=== PATIENT | male | born 1970 | race Caucasian/White ===

== ENCOUNTER 2016-09-10 19:13 | Emergency (ER) | payer OTHER ==
[~2016-09-10] VITALS: Ht 193 cm; Wt 81.6 kg
[2016-09-10] MEDS ORDERED: OXYCODONE/APAP 5-325 MG TABLET PO ONE (19:30)
[2016-09-10 19:40] LABS: BASOPHILS # (AUTO) 0.1 K/uL (0.0-8.0); BASOPHILS % (AUTO) 0.9 % (0.0-2.0); EOSINOPHILS # (AUTO) 0.3 K/uL (0.0-0.7); EOSINOPHILS % (AUTO) 4.2 % (0.0-7.0); HEMOGLOBIN 15.6 G/DL (14.0-18.0); LYMPHOCYTES % (AUTO) 33.9 % (20.5-51.5); MEAN CORPUSCULAR HEMOGLOBIN 30.5 UUG (27.0-31.0); MEAN CORPUSCULAR HGB CONC 33 g/dL (32.0-37.0); MEAN CORPUSCULAR VOLUME 92.1 FL (82.0-92.0); MONOCYTES # (AUTO) 0.4 K/UL (0.1-1.30); MONOCYTES % (AUTO) 7.2 % (0.0-11.0); NEUTROPHILS # (AUTO) 3.2 K/UL (1.8-8.9); NEUTROPHILS % (AUTO) 53.8 % (38.5-71.5); PLATELET COUNT (AUTO) 231 K/UL (150-450); RED BLOOD CELL COUNT(AUTO) 5.11 MIL/UL (4.7-6.1)
[2016-09-10 19:41] LABS: CALCIUM 8.4 mg/dL (8.5-10.1); CREATININE 0.8 mg/dL (0.6-1.3); POTASSIUM 4.1 mmol/L (3.5-5.1)
[2016-09-10 19:46] LABS: ALBUMIN 3.6 g/dL (3.4-5.0); BILIRUBIN,DIRECT 0.1 mg/dL (0.0-0.2); BILIRUBIN,TOTAL 0.3 mg/dL (0.2-1.0); TOTAL PROTEIN, SERUM 6.9 g/dL (6.4-8.2)
[2016-09-10] MEDS ORDERED: OXYCODONE/APAP 5-325 MG TABLET ONE (19:46)
[2016-09-10 19:49] LABS: *AMPHETAMINE, URINE NEGATIVE (NEGATIVE); *BARBITURATE, URINE NEGATIVE (NEGATIVE); *CANNABINOID, URINE NEGATIVE (NEGATIVE); *COCCAINE, URINE NEGATIVE (NEGATIVE); *OPIATE, URINE NEGATIVE (NEGATIVE); *PHENCYCLIDINE SCREEN,URINE NEGATIVE (NEGATIVE)
--- NOTE | 2016-09-10 21:06 | NUR ---
Patient given written and verbal discharge instructions. Patient verbalizes understanding of instructions. Patient is ambulatory with steady gait. Refuses offer of correction placement. Patient given list of available shelters in surrounding area.
== END 2016-09-10 21:14 | disposition home or self-care (01) ==
LOC: ER 19:17
DX: M25.512 Pain in left shoulder (principal); F10.20 Alcohol dependence, uncomplicated; Z59.0 Homelessness
CPT/HCPCS: 36415; 73030; 80048; 80076; 80307; 83690; 85025; 93005; 99285; A4663; G0482; G6040-TC

== ENCOUNTER 2017-06-10 17:36 | Emergency (ER) | payer MEDICAID, OTHER ==
[~2017-06-10] VITALS: Ht 177.8 cm; Wt 77.1 kg
[2017-06-10] MEDS ORDERED: VICODIN (17:54)
--- NOTE | 2017-06-10 18:47 | NUR ---
Patient is resting comfortably in bed with eyes closed, NAD noted.
--- NOTE | 2017-06-10 18:53 | NUR ---
Dr Arredondo at the bedside for MSE.
--- NOTE | 2017-06-10 20:10 | NUR ---
Patient given written and verbal discharge instructions. Patient verbalizes understanding of instructions. Replaced patient's knee brace. Patient able to transfer self to wheelchair. Refuses offer of long term placement. Patient given list of available shelters in surrounding area. VSS.
[2017-06-10] MEDS ORDERED: IBUPROFEN 600 MG TABLET ONE (20:13)
[2017-06-10 20:23] VITALS: BP 128/106
[2017-06-10] MEDS ORDERED: IBUPROFEN 600 MG TABLET PO ONE (23:00)
== END 2017-06-10 20:24 | disposition home or self-care (01) ==
LOC: ER 17:37
DX: S82.002A Unspecified fracture of left patella, initial encounter for closed fracture (principal); I10 Essential (primary) hypertension; X58.XXXA Exposure to other specified factors, initial encounter; Y93.89 Activity, other specified; Y92.89 Other specified places as the place of occurrence of the external cause; Y99.8 Other external cause status
CPT/HCPCS: 29505; 73564; 99284; A4663

== ENCOUNTER 2017-06-17 20:31 | Emergency (ER) | payer MEDICARE, MEDICAID ==
[~2017-06-17] VITALS: Ht 193 cm; Wt 90.7 kg
[~2017-06-17 20:31] MED LIST: VICODIN
--- NOTE | 2017-06-17 21:05 | NUR ---
C/O KNEE AND HIP PAIN X 2 WK. PT IN ROOM AWAITING MD DUPREE. NO SIGNS OF DISTRESSED WITNESS.
--- NOTE | 2017-06-17 22:34 | NUR ---
PT IN BED RESTING W/ EYES CLOSED. CURRENTLY WAITING FOR RESULTS FROM XRAY. NO SIGNS OF DISTRESS WITNESSED AT THIS TIME.
--- NOTE | 2017-06-17 22:48 | NUR ---
Patient discharged to home in stable conditon. Written and verbal after care instructions given. Patient verbalizes understanding of instructions. Patient left with all belongings.
--- NOTE | 2017-06-17 22:48 | NUR ---
Note leslie in ED - 06/17/17 at 2248 by ANDREINA Patient discharged to home in stable conditon. Written and verbal after care instructions given. Patient verbalizes understanding of instructions. Patient able to ambulate unassisted with steady gait. Patient left with all belongings.
[2017-06-17 22:49] VITALS: BP 142/68
== END 2017-06-17 22:50 | disposition home or self-care (01) ==
LOC: ER 20:32
DX: M25.562 Pain in left knee (principal); M25.552 Pain in left hip; I10 Essential (primary) hypertension; Z79.891 Long term (current) use of opiate analgesic
CPT/HCPCS: 72170; 73564; 99284; A4663

== ENCOUNTER 2017-06-19 17:26 | Emergency (ER) | payer MEDICARE, MEDICAID ==
[~2017-06-19] VITALS: Ht 193 cm; Wt 90.7 kg
--- NOTE | 2017-06-19 19:04 | NUR ---
SBAR REPORT TO COLLEEN SHUKLA.
[2017-06-19] MEDS ORDERED: HYDROCODONE/APAP 5-325MG TABLET PO ONE (21:07)
[2017-06-19] MEDS ORDERED: HYDROCODONE/APAP 5-325MG TABLET ONE (21:15)
--- NOTE | 2017-06-19 21:29 | NUR ---
Patient given written and verbal discharge instructions. Patient verbalizes understanding of instructions. Patient out of ER on wheelchair. Refuses offer of senior care placement. Patient given list of available shelters in surrounding area. VSS. No acute signs of distress.
[2017-06-19 21:32] VITALS: BP 140/63
== END 2017-06-19 21:33 | disposition home or self-care (01) ==
LOC: ER 17:26
DX: S82.142D Displaced bicondylar fracture of left tibia, subsequent encounter for closed fracture with routine healing (principal); G89.29 Other chronic pain; M25.562 Pain in left knee; I10 Essential (primary) hypertension; Z59.0 Homelessness; Z79.891 Long term (current) use of opiate analgesic; X58.XXXD Exposure to other specified factors, subsequent encounter
CPT/HCPCS: A4663

== ENCOUNTER 2017-07-12 17:34 | Inpatient (IN) | payer MEDICARE, MEDICAID ==
[~2017-07-12] VITALS: Ht 193 cm; Wt 97.5 kg
--- NOTE | 2017-07-12 17:40 | NUR ---
Dr Hernandez at the bedside for MSE.
[2017-07-12] MEDS ORDERED: IV NORMAL SALINE 1000 ML BAG IV ONE (18:00)
[2017-07-12 18:25] LABS: BASOPHILS # (AUTO) 0.1 K/uL (0.0-8.0); BASOPHILS % (AUTO) 1.1 % (0.0-2.0); EOSINOPHILS # (AUTO) 0.3 K/uL (0.0-0.7); EOSINOPHILS % (AUTO) 4.9 % (0.0-7.0); HEMATOCRIT 48.6 % (36.7-47.1); HEMOGLOBIN 16.2 g/dL (12.5-16.3); LYMPHOCYTES # (AUTO) 2.5 K/uL (20.0-40.0); LYMPHOCYTES % (AUTO) 36.2 % (20.5-51.5); MEAN CORPUSCULAR HEMOGLOBIN 31.5 uug (23.8-33.4); MEAN CORPUSCULAR HGB CONC 34 g/dL (32.5-36.3); MEAN CORPUSCULAR VOLUME 94.2 fL (73.0-96.2); MONOCYTES # (AUTO) 0.6 K/uL (2.0-10.0); MONOCYTES % (AUTO) 8.8 % (0.0-11.0); NEUTROPHILS # (AUTO) 3.4 K/uL (1.8-8.9); PLATELET COUNT (AUTO) 267 K/uL (152-348); RED BLOOD CELL COUNT(AUTO) 5.16 MIL/uL (4.06-5.63)
--- NOTE | 2017-07-12 18:29 | NUR ---
Patient is resting comfortably in bed with eyes closed. NAD noted. Continue monitoring.
[2017-07-12 18:32] LABS: CREATININE 0.9 mg/dL (0.6-1.3); POTASSIUM 3.7 mmol/L (3.5-5.1)
[2017-07-12 18:38] LABS: BILIRUBIN,DIRECT 0.1 mg/dL (0.0-0.2); BILIRUBIN,TOTAL 0.2 mg/dL (0.2-1.0); TOTAL PROTEIN, SERUM 7.7 g/dL (6.4-8.2)
--- NOTE | 2017-07-12 19:20 | NUR ---
REPORT TAKEN FROM CEASAR DAY SHIFT RN. ASSUMING PT CARE AT THIS TIME.
--- NOTE | 2017-07-12 20:50 | NUR ---
PT RESTING IN A POSITION OF COMFORT W/ EYES CLOSED. NO SIGNS OF DISTRESS NOTED. WILL CONTINUE TO MONITOR.
--- NOTE | 2017-07-12 22:30 | NUR ---
PT CONTINUES TO SLEEP. NO DISTRESS NOTED. BREATHING EVEN AND UNLABORED. VSS.
--- NOTE | 2017-07-13 00:03 | NUR ---
PT AWAKE AND USING URINAL AT BEDSIDE PER REQUEST.
--- NOTE | 2017-07-13 00:03 | NUR ---
PT STATES HIS HIP HURTS, BUT UNABLE TO PROVIDE FURTHER HISTORY OR ANSWER QUESTIONS. PT FELL BACK ASLEEP.
--- NOTE | 2017-07-13 01:15 | NUR ---
XRAY AT PT BEDSIDE.
--- NOTE | 2017-07-13 02:16 | NUR ---
PT RESTING IN BED W/ EYES CLOSED. NO DISTRESS NOTED. PENDING XRAY RESULTS.
--- NOTE | 2017-07-13 02:46 | NUR ---
Written and verbal after care instructions given. Patient verbalizes understanding of instructions. Pt states he is missing his wheelchair that he was in when picked up by [facility]. Will call RA to attempt to find wheelchair.
--- NOTE | 2017-07-13 05:52 | NUR ---
PER [facility], PT'S WHEELCHAIR WAS LEFT ON THE CORNER OF THE STREET WHERE PT WAS PICKED UP. 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 PT MADE AWARE AND VERBALIZES AGREEMENT OF PLAN OF CARE.
--- NOTE | 2017-07-13 06:41 | NUR ---
ER SPEAKING W/ EPIC REGARDING ADMISSION.
[2017-07-13] MEDS ORDERED: ACETAMINOPHEN 325 MG TABLET PO PRN (06:45)
[2017-07-13] MEDS ORDERED: MAGNESIUM HYDROXIDE 30 ML LIQUID UDC PO PRN (06:45)
[2017-07-13] MEDS ORDERED: ONDANSETRON 4 MG/2 ML VIAL IV PRN (06:45)
--- NOTE | 2017-07-13 06:45 | NUR ---
CALLED FOR BED ASSIGNMENT- ROOM 212
--- NOTE | 2017-07-13 07:12 | NUR ---
REPORT GIVEN TO ABDELRAHMAN MCDONOUGH SHIFT VAZQUEZ.
--- NOTE | 2017-07-13 08:00 | NUR ---
Received patient from ER via wheelchair. Patient admitted to med surg under the care of Dr. Zafar. Dx: Intractable pain. Belonging list, admission process and care plan initiated. Admission orders done by . Safety measures in place. Will continue to monitor.
[2017-07-13 08:25] VITALS: BP 138/79
[2017-07-13 11:18] VITALS: BP 140/85
[2017-07-13] MEDS: HYDROCODONE/APAP 10-325 MG TABLET PO PRN (12:03)
--- NOTE | 2017-07-13 14:00 | NUR ---
Assisted/provided patient with sponge bath.
[2017-07-13 15:23] VITALS: BP 129/86
[2017-07-13] MEDS ORDERED: MVI ADULT 10 ML VIAL=1 AMP 10 ML, THIAMINE HCL INJ 100 MG, FOLIC ACID 1 MG, MAGNESIUM S... IV SCH ×5 (15:45)
[2017-07-13] MEDS: MULTIVITAMINS,THERAPEUTIC TABLET PO SCH (17:32)
[2017-07-13] MEDS: THIAMINE HCL 100 MG TABLET PO SCH (17:32)
[2017-07-13] MEDS: FOLIC ACID 1 MG TABLET PO SCH (17:33)
[2017-07-13] MEDS: MAGNESIUM OXIDE 400 MG TABLET PO SCH (17:33)
[2017-07-13] MEDS: IV D5 1/2 NS 1000 ML 1,000 ML IV PRN (18:08)
--- NOTE | 2017-07-13 18:30 | NUR ---
Patient resting in bed, in no distress, no s/s of withdrawal alcohol intoxication noted. Cooperative with patient care. IVF running, no infiltration noted. Pain management as ordered. Safety measures in place.
--- NOTE | 2017-07-13 19:25 | NUR ---
Received pt lying in bed. Asleep. Appears comfortable. In no acute distress. IV site on RFA intact and patent. IVF infusing. VS WNL. O2 sat at 93%RA. Safety measure initiated and call moon within reach.
[2017-07-13 19:59] VITALS: BP 138/88
[2017-07-14] MEDS: IV D5 1/2 NS 1000 ML 1,000 ML IV PRN ×2 (03:56→13:33)
[2017-07-14] MEDS: HYDROCODONE/APAP 10-325 MG TABLET PO PRN ×2 (05:06→12:25)
[2017-07-14 05:54] VITALS: BP 148/98
--- NOTE | 2017-07-14 06:26 | NUR ---
Pt slept well at night. AOx4. Not in acute distress. No complain of pain or discomfort. IV site on RFA remains intact and patent. IVF infusing. O2 sat at 98%. Safety measure maintained and call moon within reach.
[2017-07-14] MEDS: THIAMINE HCL 100 MG TABLET PO SCH (08:48)
[2017-07-14] MEDS: MAGNESIUM OXIDE 400 MG TABLET PO SCH (08:48)
[2017-07-14] MEDS: MULTIVITAMINS,THERAPEUTIC TABLET PO SCH (08:48)
[2017-07-14] MEDS: FOLIC ACID 1 MG TABLET PO SCH (08:48)
[2017-07-14] MEDS ORDERED: LORAZEPAM 2 MG/1 ML VIAL IV PRN (10:15)
[2017-07-14 11:38] VITALS: BP 143/85
[2017-07-14 12:27] LABS: *BILIRUBIN,URIN NEGATIVE (NEGATIVE); *BLOOD, URINE Trace-intact (NEGATIVE); *CLARITY,URINE CLEAR (CLEAR); *COLOR,URINE YELLOW (YELLOW); *KETONES,URINE NEGATIVE (NEGATIVE); *PROTEIN,URINE NEGATIVE (NEGATIVE); *UROBILINOGEN,URINE 0.2 E.U./dl (NORMAL); LEUKOCYTE ESTERASE ,URINE NEGATIVE (NEGATIVE); NITRITE, URINE NEGATIVE (NEGATIVE); UGLUCOSE NEGATIVE (NEGATIVE)
[2017-07-14 12:38] LABS: *AMPHETAMINE, URINE NEGATIVE (NEGATIVE); *BARBITURATE, URINE NEGATIVE (NEGATIVE); *CANNABINOID, URINE NEGATIVE (NEGATIVE); *COCCAINE, URINE NEGATIVE (NEGATIVE); *OPIATE, URINE POSITIVE (NEGATIVE); *PHENCYCLIDINE SCREEN,URINE NEGATIVE (NEGATIVE)
[2017-07-14 13:33] LABS: BASOPHILS # (AUTO) 0.1 K/uL (0.0-8.0); BASOPHILS % (AUTO) 1.1 % (0.0-2.0); EOSINOPHILS # (AUTO) 0.2 K/uL (0.0-0.7); EOSINOPHILS % (AUTO) 3.8 % (0.0-7.0); LYMPHOCYTES # (AUTO) 1.9 K/uL (20.0-40.0); LYMPHOCYTES % (AUTO) 33.1 % (20.5-51.5); MEAN CORPUSCULAR HEMOGLOBIN 31.6 uug (23.8-33.4); MEAN CORPUSCULAR HGB CONC 34 g/dL (32.5-36.3); MEAN CORPUSCULAR VOLUME 93.2 fL (73.0-96.2); MONOCYTES # (AUTO) 0.5 K/uL (2.0-10.0); MONOCYTES % (AUTO) 8.5 % (0.0-11.0); NEUTROPHILS % (AUTO) 53.5 % (38.5-71.5); PLATELET COUNT (AUTO) 214 K/uL (152-348); RED BLOOD CELL COUNT(AUTO) 4.67 MIL/uL (4.06-5.63); WHITE BLOOD COUNT (AUTO) 5.7 K/uL (3.6-10.2)
[2017-07-14 13:53] LABS: BILIRUBIN,TOTAL 0.2 mg/dL (0.2-1.0); CREATININE 1.1 mg/dL (0.6-1.3); MAGNESIUM 2.1 mg/dL (1.8-2.4); PHOSPHOROUS 4.4 mg/dL (2.5-4.9); POTASSIUM 4.2 mmol/L (3.5-5.1); TOTAL PROTEIN, SERUM 6.6 g/dL (6.4-8.2)
[2017-07-14 13:55] LABS: HEMATOCRIT 43.5 % (36.7-47.1); HEMOGLOBIN 14.8 g/dL (12.5-16.3)
[2017-07-14 14:07] LABS: BACTERIA,URINE NONE SEEN /HPF (NONE SEEN); RBC,URINE NONE SEEN /HPF (0-3); SQUAMOUS EPITHELIAL CELL,UR FEW /HPF (NONE SEEN); WBC,URINE NONE SEEN /HPF (0-3)
[2017-07-14 15:38] VITALS: BP 139/87
--- NOTE | 2017-07-14 17:30 | NUR ---
Pt with order for L knee immobilizer. L knee immobilizer obtained from central supply not appropriate for pt secondary to L knee does not have full range of motion and is slightly contracted. Unable to apply immobilizer due to pt cannot straighten his left leg completely. Relayed to MELISSA Snyder with no new orders at this time. Per Samira, follow up with case management tomorrow for a different one.
[2017-07-14 20:00] VITALS: BP 135/85
[2017-07-14] MEDS: HYDROCODONE/APAP 5-325MG TABLET PO PRN (20:22)
[2017-07-14] MEDS: ENOXAPARIN SODIUM 40 MG/0.4 ML DISP.SYRIN SQ SCH (20:22)
[2017-07-15] MEDS: IV D5 1/2 NS 1000 ML 1,000 ML IV PRN ×3 (00:55→23:19)
[2017-07-15 04:45] VITALS: BP 126/74
--- NOTE | 2017-07-15 05:30 | NUR ---
Administered Hewlett once at bedtime. Pt has been sleeping all through the night. No s/s distress noted. Tolerating IV fluid well.
[2017-07-15 06:27] LABS: EOSINOPHILS # (AUTO) 0.2 K/uL (0.0-0.7); EOSINOPHILS % (AUTO) 3.6 % (0.0-7.0); LYMPHOCYTES % (AUTO) 42.2 % (20.5-51.5); MEAN CORPUSCULAR HEMOGLOBIN 32.5 uug (23.8-33.4); MEAN CORPUSCULAR HGB CONC 35 g/dL (32.5-36.3); MEAN CORPUSCULAR VOLUME 93.3 fL (73.0-96.2); MONOCYTES # (AUTO) 0.4 K/uL (2.0-10.0); MONOCYTES % (AUTO) 8.1 % (0.0-11.0); NEUTROPHILS # (AUTO) 2.2 K/uL (1.8-8.9); NEUTROPHILS % (AUTO) 45.1 % (38.5-71.5); PLATELET COUNT (AUTO) 199 K/uL (152-348); RED BLOOD CELL COUNT(AUTO) 4.93 MIL/uL (4.06-5.63); WHITE BLOOD COUNT (AUTO) 4.8 K/uL (3.6-10.2)
[2017-07-15 07:22] LABS: BILIRUBIN,TOTAL 0.3 mg/dL (0.2-1.0); CREATININE 0.9 mg/dL (0.6-1.3); MAGNESIUM 2.3 mg/dL (1.8-2.4); TOTAL PROTEIN, SERUM 7.1 g/dL (6.4-8.2)
[2017-07-15 07:25] LABS: THYROID STIMULATING HORMONE 2.666 mIU/mL (0.358-3.740)
--- NOTE | 2017-07-15 08:00 | NUR ---
AWAKE COOPERATE WELL NO SOB OR PAIN RODRÍGUEZ BUT LIMITED ON LEFT LEG ON FALL PRECAUTION CALL GRIDER IN REACH AND BED ALARM ON IVF INFUSION WELL RFA
[2017-07-15] MEDS: THIAMINE HCL 100 MG TABLET PO SCH (08:30)
[2017-07-15] MEDS: MULTIVITAMINS,THERAPEUTIC TABLET PO SCH (08:30)
[2017-07-15] MEDS: MAGNESIUM OXIDE 400 MG TABLET PO SCH (08:30)
[2017-07-15] MEDS: FOLIC ACID 1 MG TABLET PO SCH (08:30)
--- NOTE | 2017-07-15 10:00 | NUR ---
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
[2017-07-15 11:27] VITALS: BP 120/73
--- NOTE | 2017-07-15 11:30 | NUR ---
PATIENT CONDITION REGARDING NEED SPECIAL IMMOBILIZER TO APPLY ON LEFT KNEE INFORM TO POLISHER DIAL [place] STATE OK TO ORDER IT AND SHE WILL SPEAK WITH DR MATTA,ORDER PLACE TO CS
[2017-07-15] MEDS: HYDROCODONE/APAP 10-325 MG TABLET PO PRN (11:54)
[2017-07-15] MEDS: HYDROCODONE/APAP 5-325MG TABLET PO PRN (17:11)
--- NOTE | 2017-07-15 17:30 | NUR ---
STABLE HEMODYNAMIC STATUS PAIN UNDER CONTROL SAFETY MEASURE PROVIDED CALL LIGHT IN REACH
[2017-07-15 20:00] VITALS: BP 141/76
--- NOTE | 2017-07-15 20:00 | NUR ---
RECEIVED PATIENT AWAKE IN BED HE'S AOX3, DENIES PAIN OR ANY DISTRESS, VSS STABLE. SAFETY AND COMFORT MEASURES IN PLACE. WILL CONTINUE TO MONITOR PATIENT
[2017-07-15] MEDS: ENOXAPARIN SODIUM 40 MG/0.4 ML DISP.SYRIN SQ SCH (20:26)
[2017-07-15 20:30] VITALS: BP 128/70
[2017-07-15] MEDS ORDERED: ATORVASTATIN 20 MG TABLET PO SCH (21:00)
[2017-07-16 05:03] VITALS: BP 126/86
--- NOTE | 2017-07-16 06:31 | NUR ---
PATIENT SLEPT WELL THROUGH THE SHIFT, HE DENIED PAIN OR ANY DISTRESS ON THIS SHIFT. VSS STABLE, PATIENT IN STABLE CONDITION. NO FURTHER CHANGES IN STATUS. SAFETY MEASURES MAINTAINED AT ALL TIMES
[2017-07-16 07:11] LABS: BASOPHILS # (AUTO) 0.1 K/uL (0.0-8.0); BASOPHILS % (AUTO) 1.4 % (0.0-2.0); EOSINOPHILS # (AUTO) 0.2 K/uL (0.0-0.7); EOSINOPHILS % (AUTO) 4.4 % (0.0-7.0); HEMATOCRIT 43.9 % (36.7-47.1); HEMOGLOBIN 14.9 g/dL (12.5-16.3); LYMPHOCYTES # (AUTO) 2.1 K/uL (20.0-40.0); LYMPHOCYTES % (AUTO) 40.3 % (20.5-51.5); MEAN CORPUSCULAR HEMOGLOBIN 31.6 uug (23.8-33.4); MEAN CORPUSCULAR HGB CONC 34 g/dL (32.5-36.3); MEAN CORPUSCULAR VOLUME 93.2 fL (73.0-96.2); MONOCYTES # (AUTO) 0.6 K/uL (2.0-10.0); MONOCYTES % (AUTO) 10.7 % (0.0-11.0); NEUTROPHILS # (AUTO) 2.2 K/uL (1.8-8.9); NEUTROPHILS % (AUTO) 43.2 % (38.5-71.5); PLATELET COUNT (AUTO) 206 K/uL (152-348); RED BLOOD CELL COUNT(AUTO) 4.71 MIL/uL (4.06-5.63); WHITE BLOOD COUNT (AUTO) 5.1 K/uL (3.6-10.2)
[2017-07-16 07:37] LABS: BILIRUBIN,TOTAL 0.3 mg/dL (0.2-1.0); CREATININE 0.9 mg/dL (0.6-1.3); MAGNESIUM 2.3 mg/dL (1.8-2.4); PHOSPHOROUS 3.6 mg/dL (2.5-4.9); POTASSIUM 4.3 mmol/L (3.5-5.1); TOTAL PROTEIN, SERUM 6.8 g/dL (6.4-8.2)
--- NOTE | 2017-07-16 07:57 | NUR ---
Sleeping, comfortable. IVF infusing.
[2017-07-16] MEDS: THIAMINE HCL 100 MG TABLET PO SCH (09:14)
[2017-07-16] MEDS: FOLIC ACID 1 MG TABLET PO SCH (09:14)
[2017-07-16] MEDS: MULTIVITAMINS,THERAPEUTIC TABLET PO SCH (09:14)
[2017-07-16] MEDS: MAGNESIUM OXIDE 400 MG TABLET PO SCH (09:14)
[2017-07-16] MEDS: HYDROCODONE/APAP 10-325 MG TABLET PO PRN ×2 (09:16→14:41)
[2017-07-16] MEDS: IV D5 1/2 NS 1000 ML 1,000 ML IV PRN (09:19)
--- NOTE | 2017-07-16 11:00 | NUR ---
Attempted to place in the shower but with difficulty moving from wheelchair to chair, placed back on bed. Bed bath give. Hinge brace ordered, delivered and placed on left knee. PT informed.
[2017-07-16 11:05] VITALS: BP 123/70
[2017-07-16] MEDS ORDERED: ACET325T53 PO (14:36)
[2017-07-16] MEDS ORDERED: THIA100T13 PO (14:36)
[2017-07-16] MEDS ORDERED: FOLI1TAB16 PO (14:36)
[2017-07-16] MEDS ORDERED: MULT-24 PO (14:36)
[2017-07-16] MEDS ORDERED: HYDR-3326 PO (14:36)
[2017-07-16] MEDS ORDERED: Magnesium Oxide PO (14:36)
[2017-07-16] MEDS ORDERED: HYDR-548 PO (14:36)
[2017-07-16] MEDS ORDERED: MAGN400O6 PO (14:36)
[2017-07-16] MEDS ORDERED: ATOR20TA PO (14:36)
[2017-07-16 15:04] VITALS: BP 111/63
--- NOTE | 2017-07-16 16:16 | NUR ---
With discharge order to SNF arranged with [facility]. Report given to Rell. Saline lock removed. DC instructions given to patient, verbalized understanding. Awaiting for ambulance nut picker at [id number]
--- NOTE | 2017-07-16 18:18 | NUR ---
Discharged per gurney/ambulance in fair condition, not in distress, afebrile, with left knee hinge brace.
== END 2017-07-16 18:00 | DRG 896 ==
LOC: ER 17:36 → MED 07-13 08:00
PROVIDERS: ADMIT Internal Medicine; ATTEND Internal Medicine
PROC: 2W3MXYZ Immobilization of Left Lower Extremity using Other Device (ICD-10-PCS; principal; 2017-07-13)
DX: F10.229 Alcohol dependence with intoxication, unspecified (principal); G92 Toxic encephalopathy; S82.142K Displaced bicondylar fracture of left tibia, subsequent encounter for closed fracture with nonunion; X58.XXXD Exposure to other specified factors, subsequent encounter; M17.12 Unilateral primary osteoarthritis, left knee; G89.29 Other chronic pain; T51.0X1A Toxic effect of ethanol, accidental (unintentional), initial encounter; Y92.410 Unspecified street and highway as the place of occurrence of the external cause; Y90.9 Presence of alcohol in blood, level not specified; M21.862 Other specified acquired deformities of left lower leg; F17.210 Nicotine dependence, cigarettes, uncomplicated; E78.5 Hyperlipidemia, unspecified; K21.9 Gastro-esophageal reflux disease without esophagitis; I10 Essential (primary) hypertension; M25.462 Effusion, left knee; R40.2410 Glasgow coma scale score 13-15, unspecified time; Z86.59 Personal history of other mental and behavioral disorders; Z59.0 Homelessness; M25.552 Pain in left hip
CPT/HCPCS: 36415; 71045; 72170; 80307; 83690; 83735; 84100; 84443; 85025; 87086; 97110; 97530; A4663; G0480; J1650; J3490; J7030